=== PATIENT | female | born 2000 | race Caucasian/White ===

== ENCOUNTER 2024-11-02 20:06 | Emergency (ER) | payer BC, SELFPAY ==
[2024-11-02 20:22] VITALS: BP 96/56; PULSE 103; RESP 16; TEMP 36.4; O2SAT 100; BMI 23.6
[2024-11-02 20:41] LABS: Appearance Urine Clear (Clear)
--- NOTE | 2024-11-02 21:06 | ED_ITS ---
HPI - Abdominal Pain General Time Seen by Provider: 21:06 Date Seen: 11/02/24 Chief Complaint: Abdominal Pain Stated Complaint: Abdominal pain, nausea Time Seen by Provider: 11/02/24 21:06 Source: patient Mode of arrival: ambulatory History of Present Illness HPI narrative: Alexandrea is a 24 yo female who presents to the emergency department for evaluation of abdominal pain. Patient complains of severe lower abdominal pain that started today. Patient describes the pain as a severe cramping/contraction pain throughout her lower abdomen. Patient reports worsening pain around 2:30 p.m. this afternoon. Patient states she has not had a bowel movement today, and is not passing gas. Patient does report history of constipation and feels as if this is significantly worse. Patient did try taking 2 doses of MiraLax is also suppository with no improvement of symptoms. Patient reports pain is worse with movement. Patient reports nausea but denies any vomiting, no fevers, no chest pain, shortness of breath, no dysuria, hematuria. Patient is currently on her menstrual cycle. Patient took ibuprofen around 3:00 p.m.. No prior history of abdominal surgeries in the past. Related Data Home Medications ?Medication ?Instructions ?Recorded ?Confirmed No Known Home Medications 11/02/2410/09 Allergies Allergy/AdvReac Type Severity Reaction Status Date / Time morphine Allergy Hypotension Verified 11/02/24 22:47 Review of Systems Narrative Past medical history, past surgical history, medications, allergies, family history, and social history were reviewed with the patient. No additional pertinent items. A medically appropriate review of systems was performed with pertinent positives and negatives noted in HPI, all other systems negative. PFSH [facility] Social History Smoking Status: Never smoker Do you use any of these nicotine containing products: None How often do you have a drink containing alcohol: 2-4 times a month How many standard drinks containing alcohol do you have on a typical day: 1 or 2 How often do you have six or more drinks on one occasion: Never AUDIT-C Alcohol total score: 2 Non-prescribed substance use: marijuana (any form) service: No Exam Narrative: Exam Narrative: General: Afebrile, in distress 2/2 to pain HEENT: Normocephalic, atraumatic, conjunctiva normal. MMM Neck: non-tender, supple Cardio: regular rate. regular rhythm Resp: Normal work of breathing, no respiratory distress, lungs clear bilaterally, no wheezing, rhonchi, rales Chest/Back: no visual signs of trauma, no midline tenderness, no CVA tenderness Abdomen: soft, non distension, +diffuse abdominal TTP with no rebound, no guarding, no peritoneal signs Neuro: alert and fully oriented. CN II-XII grossly intact. Grossly normal strength and sensation in all extremities. MSK: no deformities. Normal range of motion Integumentary/Skin: no rash visualized, normal color Psych: normal affect, normal behavior Const: Vital Signs, click to edit/add: Vital Signs - 24 hr 11/02/24 20:22 Temperature 97.5 F L Pulse Rate [Pulse Oximeter] 103 H Respiratory Rate 16 Blood Pressure [Ri ght Upper Arm] 96/56 L Pulse Oximetry 100 Oxygen Delivery Me thod Room Air Course Vital Signs Vital signs: Initial Vital Signs Temperature 97.5 F L 11/02/24 20:22 Temperature Source Temporal Artery Scan 11/02/24 20:22 Pulse Rate 103 H 11/02/24 20:22 Respiratory Rate 16 11/02/24 20:22 Blood Pressure 96/56 L 11/02/24 20:22 Blood Pressure Mean 69 L 11/02/24 20:22 Blood Pressure Position Sitting 11/02/24 20:22 Pulse Oximetry 100 11/02/24 20:22 Oxygen Delivery Method Room Air 11/02/24 20:22 Vital Signs Temperature 97.5 F L 11/02/24 20:22 Pulse Rate 103 H 11/02/24 20:22 Respiratory Rate 16 11/02/24 20:22 Blood Pressure 96/56 L 11/02/24 20:22 Pulse Oximetry 100 11/02/24 20:22 Oxygen Delivery Method Room Air 11/02/24 20:22 Temperature 97.5 F L 11/02/24 20:22 Pulse Rate 103 H 11/02/24 20:22 Respiratory Rate 16 11/02/24 20:22 Blood Pressure 96/56 L 11/02/24 20:22 Pulse Oximetry 100 11/02/24 20:22 Oxygen Delivery Method Room Air 11/02/24 20:22 Medications Administered Medications: Discontinued Medications Generic Name Dose Route Start Last Admin Trade Name Freq PRN Reason Stop Dose Admin Sodium Chloride 1,000 mls @ 1,000 mls/hr 11/02/24 21:30 11/02/24 22:38 0.9 % Sodium Chloride 1000 Ml IV 11/02/24 22:29 Infused .Q1H NIKOLE Infusion MDM - Abdominal Pain MDM Narrative Medical decision making narrative: Alexandrea is a 24 yo female who presents to the emergency department for evaluation of abdominal pain. Upon arrival patient is nontoxic appearing, afebrile, in distress secondary to pain. Patient is slightly tachycardic upon arrival with a heart rate of 103, blood pressure 96/56, oxygen 100% on room air. Abdomen with diffuse tenderness to palpation with no rebound, no guarding, no peritoneal signs. Differential diagnosis includes but is not limited to constipation versus obstruction versus ileus versus colitis versus diverticulitis versus cystitis versus appendicitis among others. Upon arrival patient declined anything for pain. Patient was treated with 1 L IV fluid fluids. Comprehensive labs, urinalysis performed. I reviewed the suspicious unremarkable with no evidence of acute infection. Urine negative. Comprehensive labs remarkable for leukocytosis with white blood cell count 14.8, hemoglobin 12.7, no acute metabolic electrolyte abnormality, no transaminitis, normal lipase. Given patient's ongoing pain, leukocytosis CT imaging was performed. I personally reviewed interpreted CT scan the abdomen pelvis which demonstrates no acute intra-abdominal findings, no evidence of acute infection, bowel obstruction. I discussed results with patient. Patient still with some ongoing pain however 2 not want anything for symptoms at this time. Recommend continue supportive care with Tylenol, ibuprofen, bland diet and slowly advance as tolerated. Also encouraged ofwb-[id number]-[id number] stool softener/laxative to help with bowel movements. Encourage close outpatient follow-up and strict return precautions discussed. Patient understands agrees to the plan. Medical Records Attestation: I reviewed the patient's medical records. Lab Data Attestation: I reviewed the patient's lab results. Labs: Lab Results 11/02/24 11/02/24 11/02/24 Range/Units 20:29 21:06 21:26 WBC 14.89 H (4.50-11.00) K/uL RBC 4.11 (4.00-5.20) m/uL Hgb 12.7 (12.0-16.0) gm/dL Hct 38.3 (33.0-51.0) % MCV 93 (80-100) fL MCH 31 (26-34) pg MCHC 33 (32-36) gm/dL RDW Coeff of Jeovany 12.0 (11.5-15.5) % Plt Count 260 (140-440) K/uL Neut % (Auto) 85.5 H (42.0-72.0) % Lymph % (Auto) 8.3 L (20-44) % Barton % (Auto) 5.3 (0.0-11.0) % Eos % (Auto) 0.7 (0.0-7.0) % Baso % (Auto) 0.1 (0.0-3.0) % Neut # (Auto) 12.70 H (1.7-7.0) K/uL Lymph # (Auto) 1.20 (0.90-2.90) K/uL Barton # (Auto) 0.80 (0.00-0.90) K/UL Eos # (Auto) 0.10 (0.00-0.50) K/uL Baso # (Auto) 0.00 (0.00-0.30) K/uL Abs Immat Gran (auto) 0.00 (0.00-0.30) K/uL Imm/Tot Granulo (auto) 0.1 % Sodium 137 (135-149) mmol/L Potassium 4.0 (3.6-5.1) mmol/L Chloride 103 (96-114) mmol/L Carbon Dioxide 26 (20-32) mmol/L Anion Gap 8 (7-15) mEq/L BUN 15 (5-24) mg/dL Creatinine 0.7 (0.5-1.5) mg/dL Estimated Creat Clear 112.47 Estimated GFR 125 ml/min Glucose 114 (60-115) mg/dL Lactate 1.4 (0.5-1.9) mmol/L Calcium 9.2 (8.4-10.6) mg/dL Total Bilirubin 0.7 (0.1-1.5) mg/dL AST 24 (12-35) U/L ALT 18 (4-35) U/L Alkaline Phosphatase 59 (40-150) U/L Total Protein 7.7 (6.0-8.3) g/dL Albumin 4.7 (3.3-5.0) g/dL Lipase 57 (23-300) U/L Urine Color Yellow (Yellow) Urine Appearance Clear (Clear) Urine pH 7.0 (5.0-8.5) Ur Specific [place] 1.020 (1.000-1.030) Urine Protein Negative (Negative) Urine Glucose (UA) Negative (Negative) Urine Ketones Negative (Negative) Urine Blood Negative (Negative) Urine Nitrite Negative (Negative) Urine Bilirubin Negative (Negative) Urine Urobilinogen 0.2 (0.2-1.0) Ur Leukocyte Esterase 1+ A (Negative) Urine RBC 0-2 (0-2) Urine WBC 0-2 (0-5) Ur Squamous Epith Cells None (None-Few) Urine Bacteria None (None) Urine HCG, Qual Negative (Negative) Imaging Data CT scan - abdomen: Radiologist's impression: FINDINGS: Lower chest: Unremarkable. Liver: Unremarkable. Gallbladder and bile ducts: Unremarkable. Pancreas: Unremarkable. Spleen: Unremarkable. Adrenal glands: Unremarkable. Kidneys: Symmetric renal enhancement. No hydronephrosis or hydroureter. No urinary calculi. GI tract: No bowel obstruction. No suspicious bowel wall thickening. Normal appendix. Vasculature: Grossly patent vasculature. No abdominal aortic aneurysm. Lymph nodes: No suspicious lymphadenopathy. Peritoneum/Abdominal Wall: No ascites or pneumoperitoneum. No acute abdominal wall abnormality. Pelvis: Normal bladder. No suspicious adnexal mass. Bones: No acute abnormality. IMPRESSION: No acute intra-abdominal/pelvic pathology identified. Discharge Plan Discharge Clinical Impression: Abdominal pain Patient Disposition: Home, Self-Care Condition: Stable Additional Instructions: Please follow-up with your primary care provider in next 3-5 days for further evaluation and follow-up. Please call to schedule appointment. Please continue on medications. Please take Tylenol 1000 mg and ibuprofen 600 mg every 6 hours as needed for pain. Please take MiraLax 2-3 times daily to help with your bowel movements. You may also try wppu-qrq-gidkqog stool softeners (ex: senna, colace) 1-2 times daily until you have bowel movements. Please return to the emergency department if you develop high fever, severe pain, persistent vomiting, worsening symptoms. It was a pleasure taking care of you today. We hope you feel better soon. Prescriptions: No Action No Known Home Medications Follow Up/Referrals: Provider,Not a Local [Primary Care Provider, Family Practice] Stand Alone Forms: [employer] Info Instructions
[2024-11-02 21:20] LABS: Ur HCG Qualitative* Negative (Negative)
[2024-11-02 21:33] LABS: Lactate* 1.4 mmol/L (0.5-1.9)
[2024-11-02 21:38] LABS: Hematocrit* 38.3 % (33.0-51.0); Hemoglobin* 12.7 gm/dL (12.0-16.0); Immature Granulocytes Pct Auto 0.1 %; Mean Corpuscular HGB Conc 33 gm/dL (32-36); Mean Corpuscular Hemoglobin 31 pg (26-34); Mean Corpuscular Volume 93 fL (80-100); RDW Coefficient of Variation % 12.0 % (11.5-15.5); Red Blood Count* 4.11 m/uL (4.00-5.20); White Blood Count* 14.89 K/uL (4.50-11.00)
[2024-11-02 21:55] LABS: Immature Granulocytes Abs Auto 0.00 K/uL (0.00-0.30); Lymphocytes Absolute Auto 1.20 K/uL (0.90-2.90); Slide Review Reflex No
--- OUTSIDE RECORDS SUMMARY | 2024-11-02 21:59 | XMS_ITS | Clinical Summary ---
[facility] Address [id number], [place] [address] Care Team Providers Care Atlassian Administrator Name Role Phone Unavailable Primary Care Provider Unavailabl e Source Comments You are receiving this document as you are listed as the primary care provider,follow-up provider, or the patient has been referred to you for consultation.This is in compliance with the Medicare andMedicaid EHR Incentive Program,which states Providers who transition their patient to another setting of careor provider of care or refers their patient to another provider of care shouldprovide summary care record for each transition of care or referral. [facility] Allergies Active Allergy Reactions Criticality Noted Date Comments Bee Venom Edema,generalized 07/20/2023 Cat Dander Other, see comments Low 08/24/2023 Animal dander, allergic symptoms Morphine And Codeine Hypotension 07/20/2023 Medications Magnesium Citrate Take by mouth. Active Edpxpbue-Nkw-Mr- FA (PRE- OR) Take by mouth. Active cetirizine (ZYRTEC) 10 MG tablet Take 1 Tablet (10 mg) by mouth daily. 90 Tablet 3 10/28/2023 Active Active Problems Problem Noted Date Diagnosed Date (spontaneous vaginal delivery) 09/14/2023 Positive GBS test 08/30/2023 Mild intermittent asthma without complication Encounter for care in third trimester of first 08/28/2023 Fibromyalgia 03/11/2021 Immunizations Immunization Administration Dates Next Due MMR 09/12/2023(Deferred: - Pt is rub justin immune) Tdap 07/25/2023 Family History Medical History Relation Name Comments Blood clots Mother Fibromyalgia Mother Relation Name Status Comments Mother Social History Tobacco Use Types Packs/Day Years Used Date Smoking Tobacco: Never Passive Smoke Exposure: Never Smokeless Tobacco: Never Tobacco Cessation:Counseling Given: Not Answered Alcohol Use Standard Drinks/Week Comments Not Currently 0 (1 standard drink = 0.6 oz pur e alcohol) [facility] Utilities Answer Date Recorded In the past 12 months has th e [employer], [employer], oil, or water [employer] threatened to shut off services in your home? No 09/11/2023 Humiliation, Afraid, Rape, and Kick questionnair e Answer Date Recorded Fear of Current or Ex-Partner Not on file Within the last year, have y ou been humiliated or emotionally abused in other ways by your partner or ex-partner? No 09/11/2023 Within the last year, have y ou been kicked, hit, slapped, or otherwise physically hurt by your partner or ex-partner? No 09/11/2023 Within the last year, have y ou been raped or forced to have any kind of sexual activity by your partner or ex-partner? No 09/11/2023 PHQ-2 Answer Date Recorded PHQ-2 Score 0 08/24/2023 Hunger Vital Sign Answer Date Recorded Within the past 12 months, y ou worried that your food would run out before you got the money to buy more. Never true 09/11/19 24 Within the past 12 months, t he food you bought just didn't last and you didn't have money to get more. Never true 09/11/2023 PRAPARE - Transportation Answer Date Re corded In the past 12 months, has l ack of transportation kept you from medical appointments or from getting medications? No 05/2023 In the past 12 months, has l ack of transportation kept you from meetings, work, or from getting things needed for daily living? No 09/11/2023 Housing Stability Vital Sign Answer Giuseppe e Recorded In the last 12 months, was t here a time when you were not able to pay the mortgage or rent on time? No 09/11/2023 Number of Places Lived in the Last Year Not on f ile 09/11/2023 In the last 12 months, was t here a time when you did not have a steady place to sleep or slept in a fpc (including now)? No 09/11/2023 Depression Answer Date Recor ded Last EPDS Total Score 5 03/18/2024 Last EPDS Self Harm Result Not on file 03/18 Comments No Sex and Gender Information Value Date Recorded Sex Assigned at Not on file Legal Sex Female 2:19 PM CDT Gender Identity Not on file Sexual Orientation Not on file Last Filed Vital Signs Vital Sign Reading Time Taken Comments Blood Pressure 101/66 10/28/2023 3:35 PM CDT Pulse 84 10/28/2023 3:35 PM CDT Temperature 36.4 C (97.5 F) 10/28/2023 3:35 PM CDT Respiratory Rate 24 10/28/2023 3:35 PM CDT Oxygen Saturation 99% 09/14/2023 7:50 AM CDT Inhaled Oxygen Concentration - - Weight 68 kg (150 lb) 10/28/2023 3:35 PM CDT Height 165.1 cm (5' 5) 09/11/2023 8:00 AM CDT Body Mass Index 24.96 09/11/2023 8:00 AM CDT Plan of Treatment Health Maintenance Due Date Last Done Comments Chlamydia 2001 MenB Immunization Discussion 2001 HPV Vaccine (1 - 3-dose series) 01/19/2016 Adult Preventive Visit 2019 Pneumococcal Vaccine (1 of 2 - PCV) 01/19/2020 Asthma ACT (score of 20 or higher) 08/30/2024 08/31/2023 COVID-19 Vaccine (1 - 2023-2 5 season) 2024 Influenza Vaccine (#1) 2024 Cervical Cancer Screening Due 03/10/2026 DTaP/Tdap/Td Vaccine (2 - Tdap) 07/24/2033 07/25/2023 Zoster/Shingles Vaccine (1 o f 2) 2051 HIV Screening (Preventive Services) Completed 03/09/2023 (Completed) Hep C Screening (Preventive Services) Completed 03/09/2023 (Completed) HepA Vaccine Aged Out No longer eligi ble based on patient's age to complete this topic Hib Vaccine Aged Out No longer eligi ble based on patient's age to complete this topic IPV (Polio) Vaccine Aged Out No longe r eligible based on patient's age to complete this topic MCV4 Vaccine Aged Out No longer eligi ble based on patient's age to complete this topic Insurance [employer] OUT OF STATE Advance Directives * Full Code (Latest Code Status on File) Date Activated Date Inactivated Comments 09/11/2023 8:11 AM 09/14/2023 6:03 PM * Full Code Date Activated Date Inactivated Comments 09/08/2023 11:00 PM 09/09/2023 4:51 AM * Full Code Date Activated Date Inactivated Comments 08/24/2023 10:10 AM 08/24/2023 3:43 PM
[2024-11-02 22:02] LABS: Albumin* 4.7 g/dL (3.3-5.0); Chloride* 103 mmol/L (96-114); Sodium* 137 mmol/L (135-149)
[2024-11-02 22:03] LABS: Potassium* 4.0 mmol/L (3.6-5.1)
[2024-11-02 22:05] LABS: Alanine Aminotransferase* 18 U/L (4-35); Alkaline Phosphatase* 59 U/L (40-150); Anion Gap 8 mEq/L (7-15); Aspartate Amino Transferase* 24 U/L (12-35); Bilirubin Total* 0.7 mg/dL (0.1-1.5); Blood Urea Nitrogen* 15 mg/dL (5-24); Calcium* 9.2 mg/dL (8.4-10.6); Carbon Dioxide* 26 mmol/L (20-32); Creatinine* 0.7 mg/dL (0.5-1.5); Est. Creatinine Clearance* 112.47; Estimated Glomerular Filt Rate 125 ml/min; Glucose* 114 mg/dL (60-115); Total Protein* 7.7 g/dL (6.0-8.3)
--- NOTE | 2024-11-02 22:14 | CRLHL7_ITS ---
For Patients: As a result of the Century Cures Act, medical imaging exams and procedure reports are released immediately into your electronic medical record. You may view this report before your referring provider. If you have questions, please contact your health care provider. INDICATION: Abdominal pain. TECHNIQUE: CT abdomen and pelvis acquired with 69 cc Isovue 370 IV contrast. COMPARISON: None. FINDINGS: Lower chest: Unremarkable. Liver: Unremarkable. Gallbladder and bile ducts: Unremarkable. Pancreas: Unremarkable. Spleen: Unremarkable. Adrenal glands: Unremarkable. Kidneys: Symmetric renal enhancement. No hydronephrosis or hydroureter. No urinary calculi. GI tract: No bowel obstruction. No suspicious bowel wall thickening. Normal appendix. Vasculature: Grossly patent vasculature. No abdominal aortic aneurysm. Lymph nodes: No suspicious lymphadenopathy. Peritoneum/Abdominal Wall: No ascites or pneumoperitoneum. No acute abdominal wall abnormality. Pelvis: Normal bladder. No suspicious adnexal mass. Bones: No acute abnormality. IMPRESSION: No acute intra-abdominal/pelvic pathology identified. Please note that all CT scans at this facility use dose modulation, iterative reconstruction, and/or weight-based dosing when appropriate to reduce radiation dose to as low as reasonably achievable. Dictated by Vignesh Arenas MD @ 11/02/2024 11:18:46 PM (Electronically Signed)
== END 2024-11-03 00:13 | disposition home or self-care (01) ==
PROVIDERS: Emergency Medicine; Emergency Provider Emergency Medicine
DX: R10.30 Lower abdominal pain, unspecified (principal)
CPT/HCPCS: 36415; 74177; 80053; 81001; 81025; 83605; 83690; 85025; 87086; 99284; 99285; J7030; Q9967